=== PATIENT | male | born 1960 | race Caucasian/White ===

== ENCOUNTER 2022-03-21 09:23 | Outpatient (CLI) | payer OTHER, SELFPAY ==
[2022-03-21 12:57] LABS: Albumin* 4.6 g/dL (3.3-5.0)
[2022-03-21 12:58] LABS: Chloride* 105 mmol/L (96-114); Sodium* 140 mmol/L (135-149)
[2022-03-21 13:00] LABS: Aspartate Amino Transferase* 31 U/L (12-35); Bilirubin Total* 0.6 mg/dL (0.1-1.5); Carbon Dioxide* 28 mmol/L (20-32); Cholesterol* 149 mg/dL (90-199); Creatinine* 0.9 mg/dL (0.5-1.5); Estimated Glomerular Filt Rate 98 ml/min; Total Protein* 7.1 g/dL (6.0-8.3)
[2022-03-21 13:01] LABS: Alanine Aminotransferase* 26 U/L (4-50); Alkaline Phosphatase* 66 U/L (40-150); Blood Urea Nitrogen* 11 mg/dL (7-30); Calcium* 9.6 mg/dL (8.4-10.6); Glucose* 108 mg/dL (60-115); HDL Cholesterol* 71 mg/dL (>=40); LDL Cholesterol Calculated 61 mg/dL (<100); Triglycerides* 87 mg/dL (40-149); Vitamin D 25 Hydroxy* 44 ng/mL (30-80)
[2022-03-21 13:31] LABS: PSA Screen* 1.01 ng/mL (0.10-4.00)
== END 2022-03-21 09:24 | disposition home or self-care (01) ==
PROVIDERS: PCP Family Medicine; Visit Provider Family Medicine
DX: Z00.00 Encounter for general adult medical examination without abnormal findings (principal); E55.9 Vitamin D deficiency, unspecified; E78.5 Hyperlipidemia, unspecified; F32.A Depression, unspecified; Z12.5 Encounter for screening for malignant neoplasm of prostate
CPT/HCPCS: 80053; 80061; 82306; 84153

== ENCOUNTER 2023-03-24 08:56 | Outpatient (CLI) | payer OTHER, SELFPAY | END 2023-03-24 08:57 | disposition home or self-care (01) | PROVIDERS: PCP Family Medicine; Visit Provider Family Medicine | DX: Z00.00 Encounter for general adult medical examination without abnormal findings (principal); E78.5 Hyperlipidemia, unspecified; E55.9 Vitamin D deficiency, unspecified; E03.9 Hypothyroidism, unspecified; I63.9 Cerebral infarction, unspecified; I82.409 Acute embolism and thrombosis of unspecified deep veins of unspecified lower extremity | CPT/HCPCS: 80053; 80061; 81241; 82652; 83090; 84153; 84443; 85300; 85302; 85306; 85610; 85613; 85730; 86147 ==